=== PATIENT | female | born 1985 | race Two or more races ===

== ENCOUNTER 2022-03-31 09:42 | Inpatient (IN) | payer OTHER ==
[~2022-03-31] VITALS: Ht 162.6 cm; Wt 2.7 kg
[2022-03-31] MEDS ORDERED: PRENATAL + DHA1 EACH PO (10:35)
== END 2022-04-03 15:57 | disposition home or self-care (01) | DRG 788 ==
LOC: LDR 09:42 → OB/GYN 09:42
PROVIDERS: ADMIT Obstetrics & Gynecology; ATTEND Obstetrics & Gynecology
PROC: 4A1HXCZ Monitoring of Products of Conception, Cardiac Rate, External Approach (ICD-10-PCS; 2022-03-31)
PROC: 10D00Z1 Extraction of Products of Conception, Low, Open Approach (ICD-10-PCS; principal; 2022-03-31 13:30)
DX: O34.211 Maternal care for low transverse scar from previous cesarean delivery (principal); Z3A.39 39 weeks gestation of pregnancy; Z37.0 Single live birth; Z20.822 Contact with and (suspected) exposure to COVID-19